=== PATIENT | female | born 1980 | race Caucasian/White ===

== ENCOUNTER → 2016-06-15 | Outpatient (CLI) | payer OTHER ==
[~2016-06-15] MED LIST: CLC100 PO; MTR600X PO; OXYC-57 PO; PRENTAB26 PO
== END | disposition home or self-care (01) ==
LOC: MERGE 10:06 → C.PAPS 10:06
PROVIDERS: ATTEND Obstetrics & Gynecology
DX: Z12.4 Encounter for screening for malignant neoplasm of cervix (principal)

== ENCOUNTER → 2016-06-19 | Outpatient (CLI) | payer OTHER ==
[2016-06-19 10:46] LABS: PROLACTIN 8.07 ng/mL
== END | disposition home or self-care (01) ==
LOC: MERGE 07:02 → C.LAB1850 07:02
PROVIDERS: ATTEND Obstetrics & Gynecology
DX: Z31.41 Encounter for fertility testing (principal)

== ENCOUNTER → 2016-09-06 | Day surgery (SDC) | payer OTHER ==
[2016-08-07 10:20] VITALS: Ht 160 cm; Wt 63.6 kg
[~2016-09-06] VITALS: Ht 160 cm; Wt 63.6 kg
[~2016-09-06] MED LIST changes: +ATROPINE SULFATE 0.1 MG/ML 5ML SYR IV PRN; -CLC100 PO; +DEXAMETHASONE SOD INJ 4 MG/ML VIAL ONE; +EpHEDrine SULFATE INJ 50 MG/ML AMP IV PRN; +FENTANYL CITRATE INJ 50 MCG/1 ML 2 ML VIAL IV PRN; +FENTANYL CITRATE INJ 50 MCG/1 ML 2 ML VIAL ONE; +IBUPROFEN 600 MG TAB PO PRN; +KETOROLAC TROMETHAMINE 30 MG/ML VIAL IV. PRN; +KETOROLAC TROMETHAMINE 30 MG/ML VIAL ONE; +LACTATED RINGER'S 1000ML 1,000 ML IV SCH; +LIDOCAINE HCL 2% 2 ML VIAL (20MG/ML) ONE; +MIDAZOLAM HCL 1 MG/ML 2ML VIAL ONE; -MTR600X PO; +ONDANSETRON INJ 2 MG/ML 2 ML VIAL IV PRN; +ONDANSETRON INJ 2 MG/ML 2 ML VIAL ONE; +OXYCODONE/ACETAMINOPHEN 5-325 TAB PO PRN; +PROMETHAZINE HCL INJ 25 MG in SODIUM CHLORIDE 0.9% 50ML 50 ML IV PRN; +PROPOFOL IV EMULSION 10 MG/ML 20 ML VIAL IV ONE; +SCOPOLAMINE 1.5 MG TDSY TD ONE; +SODIUM CHLORIDE 0.9% 1000ML 1,000 ML IV SCH
--- NOTE | 2016-09-06 11:09 | History & Physical Bridge - [place] ---
H&P Re-Evaluation Bridge Note: I have examined the patient, reviewed the History & Physical and in the interval since the performance of the History & Physical I have noted the following changes of clinical significance: No changes noted
--- NOTE | 2016-09-06 11:31 | History & Physical Bridge - SC ---
H&P Re-Evaluation Bridge Note: I have examined the patient, reviewed the History & Physical and in the interval since the performance of the History & Physical I have noted the following changes of clinical significance: Note procedure is hysteroscopy, myomectomy, with or withour D+C. FERCHO
--- NOTE | 2016-09-06 11:59 | [facility] Post Operative Brief Note ---
Immediate Operative Summary Operative Date Sep 06, 2016. Pre-Operative Diagnosis Uterine Mass Post-Operative Diagnosis same Procedure(s) Performed Hysteroscopic Myomectomy Surgeon Dr Mariee Document Management Technician Surgeon(s) none Estimated Blood Loss 5ml Findings Small SM fibroid Specimens A) Myosure Specimen Drains [place]ond Anesthesia General Complication(s) None Disposition Recovery Room / PACU
--- NOTE | 2016-09-06 12:00 | Discharge Instructions ---
Discharge Instructions Date of Service Sep 06, 2016. Admission Reason for Admission: Uterine Mass Discharge Discharge Diagnosis / Problem: fibroid Discharge Goals Goal(s): Routine recovery after surgery Activity Recommendations Activity Limitations: per Instructions/Follow-up section . Instructions / Follow-Up Instructions / Follow-Up ACTIVITY RECOMMENDATIONS: * Avoid tampons, douching, hot tubs, pools, and intercourse until bleeding has stopped. * May shower as usual. * No strenuous activity for 24-48 hours. After 24-48 hours, you may do anything you feel like doing (driving and sports are okay). SPECIAL CARE INSTRUCTIONS: Special Diet: * Mild nausea may occur in the immediate post-operative period. * Take clear liquids such as tea, cola or bouillon until all nausea has subsided; you may then resume your normal diet. Special Care: * Light bleeding and vaginal spotting can last from a few days to 3-4 weeks. Call your doctor if bleeding becomes heavier than the heaviest part of your period. * Check your temperature twice a day for one week. If it goes above 100.4 degrees Fahrenheit (38.0 Celsius), notify your doctor. * Call your doctor's office for an appointment for 6 weeks after your surgery. FOLLOW-UP VISIT: Call your doctor's office for an appointment for 6 weeks after your surgery. Current Hospital Diet Patient's current hospital diet: Discharge Diet Recommended Diet: Regular Diet Procedures Procedures Performed: Hysteroscopic Myomectomy Pending Studies Studies pending at discharge: no Medical Emergencies . Who to Call and When: Medical Emergencies: If at any time you feel your situation is an emergency, please call 911 immediately. . Non-Emergent Contact Non-Emergency issues call your: [employer] . . "Provider Documentation" section prepared by Abdirashid Mariee. . VTE Core Measure Inpt VTE Proph given/why not?: Treatment not indicated
[2016-09-06 12:55] VITALS: TEMP 36.4
--- NOTE | 2016-09-06 13:17 | Anesthesia Progress Nt - [facility] ---
Anesthesia Post Op Note Date & Time Sep 06, 2016 at 13:17 Vital Signs Pain Intensity: 0 Vital Signs Past 12 Hours Date Time Temp Pulse Resp B/P Pulse Ox O2 Delivery O2 Flow Rate FiO2 09/06/16 12:55 36.4 65 16 132/87 99 Room Air 09/06/16 12:46 60 11 09/06/16 12:46 60 11 100 09/06/16 12:45 127/88 09/06/16 12:43 128/92 09/06/16 12:42 36.5 60 12 127/88 100 Room Air 09/06/16 12:41 66 8 09/06/16 12:41 68 8 100 09/06/16 12:40 140/97 09/06/16 12:36 61 13 100 09/06/16 12:36 64 13 09/06/16 12:35 123/87 09/06/16 12:31 68 12 09/06/16 12:31 66 12 100 09/06/16 12:30 132/84 09/06/16 12:26 59 13 100 09/06/16 12:26 61 13 09/06/16 12:25 122/90 09/06/16 12:21 71 16 100 09/06/16 12:21 70 16 09/06/16 12:20 123/93 09/06/16 12:16 68 13 100 09/06/16 12:16 69 13 09/06/16 12:15 119/91 09/06/16 12:11 36.6 75 14 119/88 99 Diffusion Mask 6 09/06/16 12:11 75 22 119/88 99 09/06/16 12:11 72 22 09/06/16 10:41 36.8 85 16 117/86 100 Room Air Notes Mental Status: alert / awake / arousable, participated in evaluation Pt Amnestic to Procedure: Yes Nausea / Vomiting: adequately controlled Pain: adequately controlled Airway Patency, RR, SpO2: stable & adequate BP & HR: stable & adequate Hydration State: stable & adequate Anesthetic Complications: no major complications apparent
[2016-09-06 13:21] VITALS: BP 145/90; PULSE 68; O2SAT 100
--- NOTE | 2016-09-06 13:30 | OPERATIVE REPORT ---
DATE OF OPERATION: 09/06/2016 PREOPERATIVE DIAGNOSIS: Uterine mass. POSTOPERATIVE DIAGNOSIS: Small submucosal fibroid. PROCEDURE: Hysteroscopic myomectomy. SURGEON: Dr. Mariee. OVERLOCK HEMMER: None. ESTIMATED BLOOD LOSS: 5 mL. FINDINGS: Small submucosal fibroid. SPECIMENS: MyoSure specimen. DRAINS: None. ANESTHETIC: General. COMPLICATIONS: None. DISPOSITION: Recovery room. PROCEDURE IN DETAIL: Miriam was given a general anesthetic, prepped and draped in dorsal lithotomy position. Bladder drained. Uterus examined and found to be axial to anteverted, normal size. Weighted speculum placed in the vagina, single tooth tenaculum on the anterior tip of the cervix. Cervix then carefully and methodically dilated, starting with #13 dilator and progressing to a #23 dilator. On inspection with the MyoSure hysteroscope using normal saline as her base solution, I visualized the uterine cavity. Both tubal ostia were visualized. There was no sign of perforation and there was a small posterior wall lower fundal submucosal fibroid, slightly less than 1 cm in size. MyoSure was then used to remove the fibroid by shedding it down to the layer of the myometrium. At the end of procedure, I felt I had the entire fibroid removed. There was no sign of perforation. Pictures were taken for documentation. Instruments removed from the cervix and vagina. Sponge and instrument counts correct. Total losses of fluid under 100 mL. I attest to the content of the Intraoperative Record and any orders documented therein. Any exceptio ns are noted below.
== END | disposition home or self-care (01) ==
LOC: X.SURG 10:24
PROVIDERS: ATTEND Obstetrics & Gynecology
DX: N85.9 Noninflammatory disorder of uterus, unspecified (principal); D25.0 Submucous leiomyoma of uterus; Z82.49 Family history of ischemic heart disease and other diseases of the circulatory system; Z80.49 Family history of malignant neoplasm of other genital organs; Z88.1 Allergy status to other antibiotic agents; Z68.25 Body mass index [BMI] 25.0-25.9, adult

== ENCOUNTER → 2017-01-08 | Outpatient (CLI) | payer OTHER ==
[~2017-01-08] MED LIST changes: -ATROPINE SULFATE 0.1 MG/ML 5ML SYR IV PRN; -DEXAMETHASONE SOD INJ 4 MG/ML VIAL ONE; -EpHEDrine SULFATE INJ 50 MG/ML AMP IV PRN; -FENTANYL CITRATE INJ 50 MCG/1 ML 2 ML VIAL IV PRN; -FENTANYL CITRATE INJ 50 MCG/1 ML 2 ML VIAL ONE; -IBUPROFEN 600 MG TAB PO PRN; -KETOROLAC TROMETHAMINE 30 MG/ML VIAL IV. PRN; -KETOROLAC TROMETHAMINE 30 MG/ML VIAL ONE; -LACTATED RINGER'S 1000ML 1,000 ML IV SCH; -LIDOCAINE HCL 2% 2 ML VIAL (20MG/ML) ONE; -MIDAZOLAM HCL 1 MG/ML 2ML VIAL ONE; -ONDANSETRON INJ 2 MG/ML 2 ML VIAL IV PRN; -ONDANSETRON INJ 2 MG/ML 2 ML VIAL ONE; -OXYCODONE/ACETAMINOPHEN 5-325 TAB PO PRN; -PROMETHAZINE HCL INJ 25 MG in SODIUM CHLORIDE 0.9% 50ML 50 ML IV PRN; -PROPOFOL IV EMULSION 10 MG/ML 20 ML VIAL IV ONE; -SCOPOLAMINE 1.5 MG TDSY TD ONE; -SODIUM CHLORIDE 0.9% 1000ML 1,000 ML IV SCH
== END | disposition home or self-care (01) ==
LOC: C.LAB1850 07:08
PROVIDERS: ATTEND Obstetrics & Gynecology
DX: Z32.00 Encounter for pregnancy test, result unknown (principal)

== ENCOUNTER → 2017-02-25 | Outpatient (CLI) | payer OTHER ==
[2017-02-25 09:51] LABS: URINE TOTAL PROTEIN 15.9 mg/dl (0-11.9)
[2017-02-25 10:03] LABS: URINE TOTAL PROTEIN CALC 131.2 mg/24 hr (0-149.1)
== END | disposition home or self-care (01) ==
LOC: C.LAB 08:41
PROVIDERS: ATTEND Obstetrics & Gynecology
DX: O14.90 Unspecified pre-eclampsia, unspecified trimester (principal); Z3A.00 Weeks of gestation of pregnancy not specified

== ENCOUNTER → 2017-03-26 | Outpatient (CLI) | payer OTHER ==
[2017-03-26 12:06] LABS: GTGD 50 Grams
== END | disposition home or self-care (01) ==
LOC: C.LAB1850 10:43
PROVIDERS: ATTEND Obstetrics & Gynecology
DX: O09.522 Supervision of elderly multigravida, second trimester (principal); Z3A.00 Weeks of gestation of pregnancy not specified

== ENCOUNTER → 2017-06-25 | Outpatient (CLI) | payer OTHER ==
[2017-06-25 10:28] LABS: HEMATOCRIT 31.9 % (37-47); HEMOGLOBIN 11.3 g/dL (12.0-16.0)
== END | disposition home or self-care (01) ==
LOC: C.LAB1850 09:44
PROVIDERS: ATTEND Obstetrics & Gynecology
DX: O09.523 Supervision of elderly multigravida, third trimester (principal)

== ENCOUNTER → 2017-07-23 | Outpatient (CLI) | payer OTHER | END | disposition home or self-care (01) | LOC: C.LABSPEC 12:34 | PROVIDERS: ATTEND Obstetrics & Gynecology | DX: O26.899 Other specified pregnancy related conditions, unspecified trimester (principal) ==

== ENCOUNTER 2017-08-06 11:57 | Outpatient (CLI) | payer OTHER | END 2017-08-06 13:15 | disposition home or self-care (01) | LOC: C.OPB 11:57 → C.LD 12:00 → C.OPB 13:15 | PROVIDERS: ATTEND Obstetrics & Gynecology | DX: O99.89 Other specified diseases and conditions complicating pregnancy, childbirth and the puerperium (principal); W19.XXXA Unspecified fall, initial encounter; O09.529 Supervision of elderly multigravida, unspecified trimester; Z3A.00 Weeks of gestation of pregnancy not specified ==

== ENCOUNTER → 2017-08-21 | Outpatient (CLI) | payer OTHER | END | disposition home or self-care (01) | LOC: C.LABSPEC 13:48 | PROVIDERS: ATTEND Obstetrics & Gynecology | DX: O09.523 Supervision of elderly multigravida, third trimester (principal); Z3A.00 Weeks of gestation of pregnancy not specified ==

== ENCOUNTER 2017-09-13 04:15 | Inpatient (IN) | payer OTHER ==
[~2017-09-13] VITALS: Ht 160 cm; Wt 86.2 kg
[2017-09-13] MEDS ORDERED: FAMO20TA11 PO (05:02)
[2017-09-13 05:04] VITALS: Ht 160 cm; Wt 86.2 kg
[2017-09-13 05:23] LABS: HEMATOCRIT 33.2 % (37-47); HEMOGLOBIN 11.6 g/dL (12.0-16.0); MEAN CELL VOLUME 87.8 fL (80-100); MEAN CORPUSCULAR HEMOGLOBIN 30.7 pg (25-34); MEAN CORPUSCULAR HGB CONC 34.9 g/dl (32-36); MEAN PLATELET VOLUME 10.6 fL (7.4-10.4); PLATELET COUNT 159 K/uL (130-400); RED CELL DISTRIBUTION WIDTH CV 13.4 % (11.5-14.5); RED CELL DISTRIBUTION WIDTH SD 42.4 fL (36.4-46.3); WHITE BLOOD COUNT 9.94 K/uL (4.8-10.8)
[2017-09-13 05:54] LABS: ALBUMIN 2.5 gm/dl (3.4-5.0); ALT/SGPT 19 U/L (12-78); AST/SGOT 16 U/L (15-37); BLOOD UREA NITROGEN 10 mg/dl (7-18); CALCIUM 8.7 mg/dl (8.5-10.1); CARBON DIOXIDE 19 mmol/L (21-32); CREATININE 0.67 mg/dl (0.60-1.20); GLUCOSE 83 mg/dl (70-99); SODIUM 136 mmol/L (136-145)
[2017-09-13 05:57] LABS: ALKALINE PHOSPHATASE 123 U/L (45-117); TOTAL PROTEIN 6.3 gm/dl (6.4-8.2)
[2017-09-13] MEDS ORDERED: FENTANYL CITRATE INJ 50 MCG/1 ML 2 ML VIAL ONE (08:10)
[2017-09-13] MEDS ORDERED: EpHEDrine SULFATE INJ 50 MG/ML AMP ONE (08:10)
[2017-09-13] MEDS ORDERED: BUPIVACAINE 0.25% 30 ML VIAL ONE (08:10)
[2017-09-13] MEDS ORDERED: FENTANYL 2MCG/ML ROPIV 1.25MG/ML 100ML BAG EPI ONE (08:11)
[2017-09-13] MEDS ORDERED: OXYTOCIN 30 UNITS/500ML NSS IV PRN ×2 (08:15→13:45)
[2017-09-13] MEDS: LACTATED RINGER'S 1000ML 500 ML IV PRN ×3 (08:55→10:44)
[2017-09-13] MEDS ORDERED: LACTATED RINGER'S 1000ML 500 ML IV PRN (09:21)
[2017-09-13] MEDS ORDERED: NALOXONE HCL 0.4 MG/1 ML VIAL/CARP IV PRN (09:30)
[2017-09-13] MEDS ORDERED: EpHEDrine SULFATE INJ 50 MG/ML AMP IV PRN (09:30)
[2017-09-13] MEDS ORDERED: FENTANYL 2MCG/ML ROPIV 1.25MG/ML 100ML BAG EPI PRN (09:30)
[2017-09-13] MEDS ORDERED: NURSING VERBAL MED ORDER ONE (11:00)
[2017-09-13] MEDS ORDERED: ONDANSETRON INJ 2 MG/ML 2 ML VIAL ONE (11:01)
[2017-09-13] MEDS ORDERED: ONDANSETRON INJ 2 MG/ML 2 ML VIAL IV ONE (11:15)
[2017-09-13] MEDS ORDERED: ACETAMINOPHEN/CODEINE 300/30MG TAB PO PRN ×2 (13:45)
[2017-09-13] MEDS ORDERED: BENZOCAINE 20% AER SPR 82.5 GM CAN EXT PRN (13:45)
[2017-09-13] MEDS ORDERED: HYDROCORTISONE ACETATE 25 MG SUPP PR PRN (13:45)
[2017-09-13] MEDS ORDERED: DIPHTHERIA/TETANUS/PERTUSSIS 0.5 ML SYR/VIAL IM. ONE (13:45)
[2017-09-13] MEDS ORDERED: LANOLIN OINT EXT PRN (13:45)
[2017-09-13] MEDS ORDERED: ACETAMINOPHEN 325 MG TAB PO PRN (13:45)
[2017-09-13] MEDS ORDERED: OXYCODONE/ACETAMINOPHEN 5-325 TAB PO PRN (13:45)
[2017-09-13] MEDS ORDERED: SUPERCREAM 0.870 % 15GM JAR EXT PRN (13:45)
--- NOTE | 2017-09-13 15:23 | Anesthesia Procedure Note ---
Anesthesia Epidural Removal Nt Date & Time Sep 13, 2017 at 15:23 Vital Signs Pain Intensity: 4.0 Notes Mental Status: alert / awake / arousable, participated in evaluation Nausea / Vomiting: adequately controlled Pain: adequately controlled Airway Patency, RR, SpO2: stable & adequate BP & HR: stable & adequate Hydration State: stable & adequate Neuraxial Anesthesia: was administered Anesthetic Complications: no major complications apparent, pt satisfied with anesthetic care Epidural: removed without complications, with tip intact
[2017-09-13] MEDS: IBUPROFEN 600 MG TAB PO PRN ×2 (15:51→23:06)
--- NOTE | 2017-09-13 16:02 | DELIVERY SUMMARY ---
DATE OF OPERATION: 09/13/2017 Vaginal delivery note. Miriam presented on 09/13/2017 with spontaneous rupture of membrane. She required augmentation with Pitocin and then received an epidural. She was group B strep negative and blood type B positive, 39 weeks 3 days and this was her second baby. She reached fully dilated quickly, pushed only over 2 contractions, delivering a baby in right occiput anterior position. There was a loose nuchal cord passed over the head. Fluid was clear. Gentle traction was used to deliver the baby. No excessive force. Live vigorous male infant. Cord clamped and cut. Cord gases obtained. Cord blood obtained. Placenta removed with traction. IV Pitocin started. Blood loss 150 mL. Second degree tear. Repaired with 3-0 Vicryl. Rectal exam negative for sutures or defects. Sponge and instruments correct. I attest to the content of the Intraoperative Record and any orders documented therein. Any exception s are noted below.
[2017-09-13 16:45] VITALS: BP_SYST 136; BP_SYST 149; BP_DIAS 83; BP_DIAS 87; PULSE 79; TEMP 36.7; O2SAT 100
[2017-09-13 19:45] VITALS: BP 136/78; PULSE 80; TEMP 36.4
[2017-09-13] MEDS: DOCUSATE SODIUM 100 MG CAP PO SCH (19:47)
[2017-09-14 00:01] VITALS: BP 134/74; PULSE 82; TEMP 36.7
[2017-09-14 05:40] VITALS: BP 121/83; PULSE 87; TEMP 36.8
--- NOTE | 2017-09-14 06:23 | Progress Note ---
Subjective Sep 14, 2017. Subjective conversation w/ patient Diet Tolerance: Regular Diet Lochia: Small Objective Vital Signs Date Time Temp Pulse Resp B/P (MAP) Pulse Ox O2 Delivery O2 Flow Rate FiO2 09/14/17 05:40 36.8 87 18 121/83 (96) Room Air 09/14/17 00:01 Room Air 09/14/17 00:01 36.7 82 18 134/74 (94) Room Air 09/13/17 19:45 36.4 80 18 136/78 (97) Room Air 09/13/17 16:45 100 Room Air 09/13/17 16:45 36.7 79 20 149/87 (107) 100 Room Air 136/83 (100) Physical Exam Abdomen: non tender Fundus: Firm Extremities: no calf tenderness Laboratory Results Last 24 Hours Test 09/14/17 06:16 Assessment and Plan Post- Day#: 1 Continue Routine Care: Well. No H/A no PIH symptoms. Likely tomorrow plan for discharge.
[2017-09-14 06:31] LABS: HEMATOCRIT 28.7 % (37-47); HEMOGLOBIN 9.8 g/dL (12.0-16.0)
[2017-09-14] MEDS: PRENATAL VITAMIN TAB PO SCH (07:35)
[2017-09-14] MEDS: DOCUSATE SODIUM 100 MG CAP PO SCH ×2 (07:35→19:33)
[2017-09-14] MEDS: IBUPROFEN 600 MG TAB PO PRN ×3 (07:36→19:32)
[2017-09-14 08:19] VITALS: BP 130/83; PULSE 79; TEMP 36.8; O2SAT 100
[2017-09-14 11:33] VITALS: BP 120/79; PULSE 90; TEMP 36.9; O2SAT 99
[2017-09-14 16:20] VITALS: BP 128/81; PULSE 92; TEMP 36.9; O2SAT 98
[2017-09-14] MEDS ORDERED: BISACODYL 5 MG TABEC PO SCH (20:00)
[2017-09-14 23:45] VITALS: BP 147/88; PULSE 92; TEMP 36.4
--- NOTE | 2017-09-15 06:05 | Progress Note ---
Subjective Sep 15, 2017. Subjective conversation w/ patient, physical exam, chart review, lab review Ambulation: ambulating normally Voiding: no voiding problems Passing Gas: Yes Diet Tolerance: Regular Diet Lochia: Small Feeding Type: Breast Feeding Review of Systems Constitutional: No fever, No chills Respiratory: No cough, No shortness of breath Cardiac: No chest pain, No palpitations Abdomen: No pain, No nausea, No vomiting Female : No dysuria Objective Vital Signs Date Time Temp Pulse Resp B/P (MAP) Pulse Ox O2 Delivery O2 Flow Rate FiO2 09/14/17 23:45 Room Air 09/14/17 23:45 36.4 92 18 147/88 (107) Room Air 09/14/17 16:20 98 Room Air 09/14/17 16:20 36.9 92 16 128/81 (97) 98 Room Air 09/14/17 11:33 36.9 90 18 120/79 (93) 99 Room Air 09/14/17 08:19 36.8 79 20 130/83 (99) 100 09/14/17 07:40 Room Air Physical Exam General Appearance: WELL-APPEARING, WD/WN, NO APPARENT DISTRESS Respiratory/Chest: lungs clear, no respiratory distress Cardiovascular: regular rate, rhythm, no murmur Abdomen: non tender, soft Fundus: Firm Extremities: non-tender, normal inspection Laboratory Results Last 24 Hours Test 09/14/17 06:16 09/15/17 04:44 Hemoglobin 9.8 g/dL Hematocrit 28.7 % Assessment and Plan Post- Day#: 2 Continue Routine Care: 37, F, , B+/RI/GBS-, PPD2. Vitals reviewed, WNL. Hgb 11.6 on admission, 9.8 on 09/14. No signs or sx of anemia. Patient is doing well clinically. 1. Recovery from vaginal delivery--ambulate, support BF, monitor lochia, control pain Resident Physician Supervision Note: I interviewed and examined the patient. Discussed with Dr. Rutledge and agree with findings and plan as documented in the note. Any exceptions or clarifications are listed here: Discharge home today Documented By: Tiki Pandya
--- NOTE | 2017-09-15 06:06 | Discharge Instructions ---
Discharge Instructions Date of Service Sep 15, 2017. Admission Reason for Admission: LABOR Discharge Discharge Diagnosis / Problem: vaginal delivery Discharge Goals Goal(s): Routine recovery after delivery Medications Continue Dispensed Medications: supercream, dermaplast, tucks, lansinoh Activity Recommendations Activity Limitations: per Instructions/Follow-up section . Instructions / Follow-Up Instructions / Follow-Up ACTIVITY RECOMMENDATIONS: * Gradual return to full activity over the next 2-3 weeks. * No lifting - nothing heavier than baby over the next 2-3 weeks. * Do not engage in vigorous exercise, sexual activity or sports until cleared by your physician. * Do not drive or operate any motorized equipment until cleared by your physician. * You may shower/bathe daily. MEDICATIONS: For discomfort or pain, you may use Acetaminophen (Tylenol), Ibuprofen (Advil), or Naproxen (Aleve) following the package directions. For constipation you may use Colace following the package directions. BREAST CARE: If you are not breast feeding: * Wear a supportive bra 24 hours a day for one to two weeks. * Avoid stimulating your breasts and nipples as much as possible during the first few weeks after delivery. * When taking a shower, have the warm water hit your back, not breasts. * When your breasts feel full, apply ice packs. Usually three to four times a day helps ease the discomfort. * Take a mild pain medication (Tylenol / Motrin) when you are uncomfortable. If breast feeding: * Use breast milk to lubricate nipples. Lansinoh cream may be used for sore nipples. You do not need to remove cream prior to breast feeding. If using a different brand of cream, check the label for directions regarding removal of cream prior to nursing. * Wear a supportive bra. * If having problems with breasts or breast feeding, call a vocational rehab consultant or your health care provider. EPISIOTOMY CARE: After delivery, if you have an episiotomy (stitches), the following steps will ease discomfort and aid healing. * For the first 24 hours after delivery, place ice packs next to your episiotomy to help reduce swelling. * After the first 24 hour-period, sitz baths, either portable or in the tub, are suggested. A shower with a shower arm sprayed over the episiotomy may be comforting. * Opal care should be done after each voiding and bowel movement. Squirt warm water from a plastic bottle over the perineum (region of the body between the anus and urinary opening) and pat dry. * Use Dermoplast to ease discomfort. Shake container. [place] directly over the episiotomy. Place a Tucks on a clean sanitary pad next to your episiotomy. SPECIAL CARE INSTRUCTIONS: When you are discharged from the hospital, it is important for you to follow the instructions listed below: * During the first week at home, you should be able to care for yourself and your baby. In addition, the usual light household activities are encouraged. * Limit your activities to the way you feel. Do not try to clean the house or move furniture. Be sensible. * If you actively engage in sports and have done so up until the time of your delivery, you may resume these activities as soon as you feel able. This may take up to one month or even longer. Use good judgment. * Continue to take your vitamins for at least six weeks after the of your baby. * Your diet need not be limited unless you were on a special diet before your delivery. Breast-feeding mothers need around 2500 calories per day and at least 64-80 ounces of fluid per day (8 to 10 glasses). * You should eat foods from the four major food groups. Crash diets or fad diets are to be avoided. Eating lean meats, fresh fruits and vegetables, low-fat dairy products, high fiber foods and a regular exercise program, will help you get back to your pre- weight without putting your health at risk. * Constipation is sometimes a problem after delivery. Take a mild laxative as needed. If breast feeding, Milk of Magnesia is acceptable to use. You may use a suppository or Fleets enema if no episiotomy. * A daily shower or tub bath is suggested. Be sure to thoroughly and gently dry the perineum. * A bloody vaginal discharge will usually continue until around four weeks post . A small amount of bleeding may continue for as long as six weeks. Vaginal discharge changes from the bright red bleeding after delivery to pink then brownish and finally yellowish-pink before becoming white and disappearing. * Bleeding may increase with activity. Your first period may come in 4-8 weeks. If you are breast feeding, your period may be delayed even longer. * [place] (sex) can begin whenever both you and your partner feel comfortable and do not have any form of genital infection. It is recommended that you wait at least six weeks for internal and external healing to occur. If you have questions, please talk to your health care practitioner. A condom should be used to prevent infection and . * Foreplay, gentle intercourse and lubrication is very important the first several times to prevent pain. A water-based lubricant such as K-Y jelly or Astroglide may be used. * If you have RH negative blood and your baby is RH positive, you will receive RHOGAM by injection prior to discharge. The nurse will give you a card to keep with you that has the date and place that you received RHOGAM after delivery. * During your care, you had a Rubella screen done to check for the presence of rubella antibodies in your blood. If your test was negative, you will receive a Rubella vaccine prior to discharge. This vaccine may cause a fever, soreness at the injection site and flu-like symptoms. If these symptoms persist, notify your health care practitioner. is not advised for one month after a Rubella vaccine. * Verbalizes understanding of car seat law as reviewed with patient nursing. * Car Seat hand-out given and reviewed with patient by nursing. * Shaken baby information reviewed with patient by nursing. Call you doctor if: * Heavy bleeding (saturating several pads an hour) or passing clots the size of your fist. * A fever >101 degrees F (38.3 degrees C) on two occasions four hours apart and /or chills. * Unusual pain in the pelvic or vaginal areas. * "Baby Blues" lasting longer than two weeks. If you have any questions or concerns, call your health care practitioner at . FOLLOW UP VISIT: * Please call the office at to schedule a 6 week examination. It is important you keep this appointment. It is important for you to make arrangements for either yearly or twice yearly check-ups thereafter. Current Hospital Diet Patient's current hospital diet: Regular OB Diet Discharge Diet Recommended Diet: Regular Diet, Regular OB Diet Pending Studies Studies pending at discharge: no Medical Emergencies . Who to Call and When: Medical Emergencies: If at any time you feel your situation is an emergency, please call [phone] immediately. . Non-Emergent Contact Non-Emergency issues call your: Primary Care Provider, Publicity Agent . . "Provider Documentation" section prepared by Fabian Rutledge. .
[2017-09-15 06:31] LABS: HEMATOCRIT 28.3 % (37-47); HEMOGLOBIN 9.8 g/dL (12.0-16.0); MEAN CELL VOLUME 88.2 fL (80-100); MEAN CORPUSCULAR HEMOGLOBIN 30.5 pg (25-34); MEAN CORPUSCULAR HGB CONC 34.6 g/dl (32-36); MEAN PLATELET VOLUME 9.9 fL (7.4-10.4); PLATELET COUNT 146 K/uL (130-400); RED CELL DISTRIBUTION WIDTH CV 13.3 % (11.5-14.5); RED CELL DISTRIBUTION WIDTH SD 43.2 fL (36.4-46.3); WHITE BLOOD COUNT 7.69 K/uL (4.8-10.8)
[2017-09-15] MEDS ORDERED: BISACODYL 10 MG SUPP PR PRN (07:00)
[2017-09-15] MEDS: DOCUSATE SODIUM 100 MG CAP PO SCH (08:00)
[2017-09-15] MEDS: PRENATAL VITAMIN TAB PO SCH (08:00)
[2017-09-15] MEDS: IBUPROFEN 600 MG TAB PO PRN (08:00)
[2017-09-15 08:15] VITALS: BP 143/92; PULSE 91; TEMP 37
[2017-09-15 13:30] VITALS: BP_DIAS 92; PULSE 91; TEMP 37
== END 2017-09-15 13:30 | disposition home or self-care (01) | DRG 775 ==
LOC: C.LD 04:15 → C.OPB 04:15 → C.LD 04:41 → C.OBG 16:28
PROVIDERS: ADMIT Obstetrics & Gynecology; ATTEND Obstetrics & Gynecology
PROC: 10E0XZZ Delivery of Products of Conception, External Approach (ICD-10-PCS; principal; 2017-09-13)
PROC: 0KQM0ZZ Repair Perineum Muscle, Open Approach (ICD-10-PCS; principal; 2017-09-13)
PROC: 3E033VJ Introduction of Other Hormone into Peripheral Vein, Percutaneous Approach (ICD-10-PCS; 2017-09-13)
DX: O42.02 Full-term premature rupture of membranes, onset of labor within 24 hours of rupture (principal); O69.81X0 Labor and delivery complicated by cord around neck, without compression, not applicable or unspecified; O70.1 Second degree perineal laceration during delivery; O09.523 Supervision of elderly multigravida, third trimester; Z3A.39 39 weeks gestation of pregnancy; Z37.0 Single live birth